=== PATIENT | female | born 1940 | race Caucasian/White ===

== ENCOUNTER 2016-10-20 14:09 | Emergency (ER) ==
--- NOTE | 2016-10-20 14:35 | EKG Report ---
Test Performed on : 10/20/2016 2:15:16 PM Test Reason : sob Blood Pressure : / mmHG Vent. Rate : 096 BPM Atrial Rate : 091 BPM P-R Int : 000 ms QRS Dur : 132 ms QT Int : 356 ms P-R-T Axes : 000 -39 151 degrees QTc Int : 449 ms Atrial fibrillation. with premature ventricular or aberrantly conducted complexes. Left axis deviation Left bundle branch block Abnormal ECG When compared with ECG of 27-AUG-2016 11:45, No significant change was found Unconfirmed Result
[2016-10-20] MEDS ORDERED: DUONEB (A & A) INH ONE ×2 (15:00→18:35)
--- NOTE | 2016-10-20 15:05 | PROVIDER DOCUMENTATION ---
HPI-Respiratory General - General Source: patient Unable to obtain history due to:: urgency - History of Present Illness-Resp Severity in ED: reports: moderate, severe Onset/Duration: reports: unsure Timing: reports: still present, constant Associated Symptoms: reports: shortness of breath, short of breath, wheezing. denies: cough, fever/chills, flu-like symptoms, nasal congestion, nasal drainage Similar Symptoms Previously?: Yes Recently seen or treated by another doctor?: Yes <Anand Gipson - Last Filed: 10/20/16 15:44> <Jana Dong - Last Filed: 10/20/16 18:36> <Mario Hyatt - Last Filed: 10/20/16 19:46> - General Chief Complaint: Wheezing Stated Complaint: DIFFCULTY BREATHING,WHEEZING Time Seen by Provider: 10/20/16 14:41 Allergies/Adverse Reactions: Patient Allergies Allergy/AdvReac Type Severity Reaction Status Date / Time No Known Allergies Allergy Verified 10/20/16 14:49 Home Medications: Home Medication List Medication Instructions Recorded Confirmed Last Taken Type Ezetimibe [Zetia] 10 mg PO DAILY 04/16/14 10/20/16 04/26/16 History Digoxin [Digox] 125 mcg PO DAILY #0 tablet 04/19/14 10/20/16 04/26/16 Rx Omeprazole [Prilosec] 20 mg PO DAILY@0700 #0 capsule 04/19/14 10/20/16 04/26/16 Rx PRAVAstatin [Pravachol] 40 mg PO QHS #0 tablet 04/19/14 10/20/16 04/26/16 Rx Tiotropium [place] Inhaler 1 puff INH RTDAILY #0 inhaler 04/19/14 10/20/1608/26 Rx [Spiriva] Metoprolol [Lopressor] 50 mg PO BID #60 tablet 05/07/15 10/20/16 04/26/16 Rx Hydrocodone/Acetaminophen [[place] 7.5 mg PO TID PRN PRN #90 tablet 09/18/1510/2004/28/16 Rx 7.5-325 Tablet] Prednisone 20 mg PO DAILY #5 tablet 08/29/16 10/20/16 Unknown Rx Folic Acid 1 mg PO DAILY 10/20/16 10/20/16 Unknown History Gabapentin 100 mg PO BID 10/20/16 10/20/16 Unknown History Losartan [Cozaar] 25 mg PO DAILY 10/20/16 10/20/16 Unknown History - History of Present Illness-Resp Nature of Presenting Problem: Patient is a 75 y/o F that presents to the ER via EMS for shortness of breath. patient is ESRD with hemodialysis but is unclear what days she goes( poor historian). Patient went to dialysis but was sent over for evaluation( she didn' t have dialysis). She is in moderate distress with wheezing and gasping for breath. patient has been admitted in past for septic shock and heart failure in past. (Anand Gipson) Review of Systems - Adult - REVIEW OF SYSTEMS - ADULT Constitutional: denies: chills, fever, fatique Eyes: reports: no symptoms reported Ears, Nose, Mouth & Throat: denies: ear discharge, ear pain, sinus problem, throat pain Cardiovascular: denies: chest pain, palpitations, syncope Respiratory: reports: dyspnea on exertion, shortness of breath, wheezing. denies: cough Gastrointestinal: denies: abdominal pain, diarrhea, nausea, vomiting Genitourinary: reports: no symptoms reported Musculoskeletal: reports: no symptoms reported Integumentary: reports: no symptoms reported Neurological: denies: dizziness/vertigo, headache/migraines, syncope Psychiatric: reports: no symptoms reported Endocrine: reports: no symptoms reported Hematologic/Lymphatic: reports: no symptoms reported Allergic/Immunologic: reports: no symptoms reported All Other Systems: Reviewed and Negative <Anand Gipson - Last Filed: 10/20/16 15:44> Past History - Adult - PAST MEDICAL HISTORY-ADULT Review of Records: reports: Old Records Reviewed, Nursing Assessment Review, Medications Reviewed Cardiovascular: reports: A-Fib, CHF, HTN Respiratory: reports: COPD Genitourinary: reports: dialysis (Wednesday, and wednesday), kidney disease, other (renal disease) Neurological: reports: CVA, other (cerebral bleeding) - PRIOR SURGERIES/PROCEDURES Surgical/Procedure History: reports: cholecystectomy, hysterectomy, other (left arm fistula, cerebral bleeding) - IMMUNIZATION STATUS Childhood Immunizations: UTD, See Nurse Assessment Flu Vaccine: See Nurse Assessment - FAMILY HISTORY Family History: reviewed, not pertinent - SOCIAL HISTORY Smoking: non-smoker Living Situation: family <Anand Gipson - Last Filed: 10/20/16 15:44> Physical Exam-General - PHYSICAL EXAM-ADULT Initial Vital Signs Reviewed: Yes - CONSTITUTIONAL General Appearance: moderate distress, anxious, other (ill appearing) - EYES Eyes: PERRL/EOMI, pink conjunctivae - HEAD, EARS, NOSE, MOUTH & THROAT HENMT: normocephalic/atraumatic, normal ENT inspection - NECK Neck: other (JVD left more than right) - RESPIRATORY Respiratory: respiratory distress, accessory muscle use, wheezing (throughout), increased rate - CARDIOVASCULAR Cardiovascular: JVD, other (unaudible heart tones due to wheezing) - GASTROINTESTINAL (ABDOMEN) Abdominal Exam: normal bowel sounds, non tender, soft - MUSCULOSKELETAL Extremity: no calf tenderness, swelling (bilateral lower legs) - SKIN Integumentary: other (stasis dermatitis to lower legs). negative: cyanosis - PSYCHIATRIC Psych/Mental Status: anxious, other (oriented to person, not place or time) <Anand Gipson - Last Filed: 10/20/16 15:44> Progress - XRAY 1 XRAY Study: Chest Impression: Abnormal XRAY Interpretation: prominent cardiac silhoutte and prominent right hilar <Anand Gipson - Last Filed: 10/20/16 15:44> - REASSESSMENT Reassessment #1 Time Reassessed: 18:30 (Dr. Miramontes reassessed pt to find her still heavily wheezing and lethargic. Requesting pt to be admitted. ) <Jana Dong - Last Filed: 10/20/16 18:36> - REASSESSMENT Reassessment #1 Time Reassessed: 19:45 (sitting up w/no distress and asking for food to eat now /pt agree w/dc home plan) Status: improving <Mario Hyatt - Last Filed: 10/20/16 19:46> - PLAN OF CARE/RESULTS Progress/Plan/Lab Results: plan of care-labs,meds, cxr (Anand Gipson) Departure <Anand Gipson - Last Filed: 10/20/16 15:44> <Jana Dong - Last Filed: 10/20/16 18:36> - Departure Time of Disposition Order: 19:44 Certified Medical Emergency: Emergent <Mario Hyatt M - Last Filed: 10/20/16 19:46> - Departure DIAGNOSIS: COPD exacerbation, End stage renal failure on dialysis, Weakness Disposition: HOME 01 Condition: Stable Additional Instructions: ED Follow Up Instructions: You have been treated by a care provider in the Emergency Department. These instructions are being provided to you so you can have an understanding of how to care for yourself upon discharge. Upon discharge from the Emergency Department, you are responsible for making arrangements for follow-up care by a physician of your choice. Take all prescribed medications as directed. Return to the Emergency Department immediately for any new or worsening symptoms. You may call the Physician Referral phone number at [phone] to obtain a list of Physicians who are taking new patients. Attestation - Scribe Verification/Attestation Scribe:: Anand Gipson Acting as Scribe for:: Dylon Miramontes Scribe documention review:: This chart was documented by a scribe and accurately reflects the service the provider performed and the decisions made by the provider. <Anadn Gipson - Last Filed: 10/20/16 15:44> Physician Attestation - Physician Attestation I, the provider, attest to the following statement:: Dylon Miramontes Physician documentation Attestation:: This documentation recorded by the scribe accurately reflects the service I personally performed and the decisions made by me. <Anand Gipson - Last Filed: 10/20/16 15:44>
[2016-10-20 15:17] LABS: MANUAL DIFF NEEDED? NO
[2016-10-20 15:20] LABS: BASO% 1.1 % (0.0-0.8); EOS# 0.05 X1000 (0.0-0.7); EOS% 1.1 % (0.0-10.0); HEMATOCRIT 36.6 % (37.0-47.0); HEMOGLOBIN 12.1 g/dL (12.0-16.0); LYMPH# 0.76 X1000 (1.2-3.4); LYMPH% 16.7 % (20.5-51.1); MCHC 33.1 g/dL (33-37); MCV 96.8 FL (81-99); MONO# 0.44 X1000 (0.11-0.59); MONO% 9.7 % (1.7-9.3); MPV 11.5 FL (7.4-10.4); NEUT% 71.4 % (42.2-75.2); PLT 193 X1000 (130-400); RBC 3.78 XMIL (4.2-5.4)
[2016-10-20 15:31] LABS: CALCIUM 8.9 mg/dL (8.8-10.2)
--- NOTE | 2016-10-20 15:40 | Diag Imaging Result Document ---
PROCEDURE NAME: CHEST-PORTABLE - 10/20/2016 SINGLE FRONTAL RADIOGRAPH OF THE CHEST: COMPARISON: 08/28/2016. FINDINGS: Inspiration is suboptimal. The patient is rotated toward the left. The lungs appear to be grossly clear. The right hilum is prominent but stable. No definite pleural fluid collection is identified. Cardiac silhouette is, perhaps, mildly prominent but stable. IMPRESSION: Mildly prominent cardiac silhouette and prominent right hilum that are stable. No definite acute pathology, otherwise.
[2016-10-20 18:57] LABS: ALLEN TEST YES; BE 3.9 mmoll (-3.0-3.0); BLOOD TYPE ARTERIAL; DRAW SITE R BRACHIAL; METHB 1.7 % (0.0-1.5); O2(CT) 15.1 mL/dL (15.0-23.0); PCO2(98.6) 46 mmHg (35-45); PO2(98.6) 147 mmHg (60-100); SAMPLE BLOOD; SAO2 99.8 % (95.0-100.0); THB 10.9 g/dL (11.5-17.4); pH(98.6) 7.41 (7.35-7.45)
[2016-10-20 18:58] LABS: MODALITY CANNULA
[2016-10-20] MEDS ORDERED: KLOR-CON PO ONE (19:44)
[2016-10-20 20:22] VITALS: BP 111/65
== END 2016-10-20 20:26 | disposition home or self-care (01) ==
LOC: EDBD → EDUNIT# → ED 14:09
DX: J44.1 Chronic obstructive pulmonary disease with (acute) exacerbation (principal); I12.0 Hypertensive chronic kidney disease with stage 5 chronic kidney disease or end stage renal disease; N18.6 End stage renal disease; Z99.2 Dependence on renal dialysis; R53.1 Weakness; R06.02 Shortness of breath; R06.2 Wheezing; I48.91 Unspecified atrial fibrillation; Z79.899 Other long term (current) drug therapy; R06.09 Other forms of dyspnea; J44.9 Chronic obstructive pulmonary disease, unspecified; Z86.73 Personal history of transient ischemic attack (TIA), and cerebral infarction without residual deficits; R22.43 Localized swelling, mass and lump, lower limb, bilateral; I87.2 Venous insufficiency (chronic) (peripheral); Z79.52 Long term (current) use of systemic steroids; Z79.51 Long term (current) use of inhaled steroids
CPT/HCPCS: 71010; 80048; 82805; 82948; 85025; 87040; 93005; 94640

== ENCOUNTER 2018-08-28 23:28 | Inpatient (IN) ==
[2018-08-29] MEDS ORDERED: ZOFRAN IV PRN (01:27)
[2018-08-29] MEDS ORDERED: NS 500 ML IV ONE (01:28)
[2018-08-29] MEDS ORDERED: D50W SYRINGE IV ONE (01:28)
[2018-08-29] MEDS: DUONEB (A & A) INH SCH ×6 (03:32→23:43)
--- NOTE | 2018-08-29 03:56 | HISTORY AND PHYSICAL ---
PRIMARY CARE PHYSICIAN: Unknown. CHIEF COMPLAINT: Altered mental status and needs dialysis. HISTORY OF PRESENTING ILLNESS: This is a 77-year-old female with a history of end-stage renal disease, COPD, atrial fibrillation, and dementia who apparently was transferred from [facility] due to patient needing dialysis and also being obtunded. Apparently, the physician there stated that the patient had missed 2 sessions of dialysis this last week and they were not able to get her dialyzed. The patient was subsequently transferred to the medical floor here. She was obtunded and not really responsive. Apparently, she was found also to be hypoglycemic while she was there with a blood glucose in the 50s range. She was given D50 by EMS and her blood glucose had increased to 130. However, en route, when the patient got to the medical floor here, her blood glucose had dropped down to 80. Not much information could be obtained from the patient and most of the history is obtained from previous records. PAST MEDICAL HISTORY: Includes left heel osteomyelitis, bilateral decubitus, hemorrhagic CVA, end- stage renal disease, COPD, atrial fibrillation, dementia, severe aortic stenosis. PAST SURGICAL HISTORY: Cholecystectomy, hysterectomy, dialysis catheter. ALLERGIES: No known drug allergies. CURRENT MEDICATIONS: As listed in the medication reconciliation sheet. SOCIAL HISTORY: No history of smoking, alcohol, or illicit drug use. Basically bedbound. FAMILY HISTORY: No history of coronary artery disease. REVIEW OF SYSTEMS: Unable to obtain due to patient being obtunded. PHYSICAL EXAMINATION: GENERAL: The patient is obtunded. VITAL SIGNS: Temperature 99.2 degrees, pulse 103, respirations 16, blood pressure 96/60. HEENT: Atraumatic and normocephalic. NECK: No masses. CHEST: Rhonchi. CARDIOVASCULAR: Regular rate and rhythm. ABDOMEN: Soft. Positive bowel sounds. EXTREMITIES: Wrapped in gauze. : No bladder distention. NEUROLOGIC: She is responsive to tactile painful stimuli. SKIN: Warm. LABORATORIES AND STUDIES: Done at [facility], sodium 132, potassium 3.7, chloride 94, CO2 of 24, BUN is 34, creatinine is 4.4, glucose is 57. WBCs 7.6, hemoglobin 8.1, hematocrit 25.2, platelets 361,000. ASSESSMENT: This is a 77-year-old female with a history of end-stage renal disease, chronic obstructive pulmonary disease, atrial fibrillation, and dementia who was transferred from [facility] due to patient needing dialysis. The patient is markedly obtunded here. She will be admitted for further management. 1. Altered mental status. 2. Metabolic encephalopathy. 3. Hypoglycemia. 4. End-stage renal disease. 5. Chronic obstructive pulmonary disease. 6. Atrial fibrillation. 7. Chronic left heel decubitus. PLAN: 1. The patient is admitted to the medical floor with telemetry. 2. Continue with neurological checks. 3. We will give the patient an ampule of D50 and monitor blood glucose closely. 4. We will consult nephrology for dialysis. 5. We will restart home medicines. 6. We will consult wound care. 7. We will hold off for DVT prophylaxis due to previous history of hemorrhagic CVA. 8. The patient's condition is guarded. 9. We will continue to follow and reassess, make further recommendation based on the patient's clinical course. cc: Saul Onofre MD
[2018-08-29] MEDS ORDERED: HEPARIN IV PRN (06:42)
[2018-08-29] MEDS ORDERED: NS 2,000 ML MISC PRN (06:42)
[2018-08-29] MEDS ORDERED: TIGHT: 0.2 ML/HR FOR DIALYSIS MISC PRN (06:42)
--- NOTE | 2018-08-29 13:20 | PROGRESS NOTE ---
DATE: 08/29/2018 SUBJECTIVE: Patient resting in bed. She is difficult to arouse. OBJECTIVE: Vital Signs: Temperature 97.1 degrees, pulse 95, respirations 18, blood pressure 129/73, O2 saturation 100%. HEENT: Atraumatic, normocephalic. Cardiovascular: S1, S2. Respiratory system: Evidence of good air entry bilaterally. Abdomen: Soft, nontender. No masses felt. Extremities: No evidence of edema. Central nervous system: The patient is lethargic. Could not adequately assess central nervous system. LABORATORY DATA: Labs pending. ASSESSMENT AND PLAN: 1. Encephalopathy probably secondary to uremia. Will continue to follow up on the patient's mental status while she is on hemodialysis. 2. End-stage renal disease, on hemodialysis. Nephrology consulted. 3. Chronic obstructive pulmonary disease. Use nebulized bronchodilators as needed. 4. Atrial fibrillation. Continue amiodarone. Patient's heart rate is currently controlled. 5. Chronic left heel decubitus ulcer. Will consult wound care for wound dressings. 6. Deep vein thrombosis prophylaxis. Heparin. 7. Gastrointestinal prophylaxis. Proton pump inhibitor. cc: Fam Enriquez MD
--- NOTE | 2018-08-29 13:30 | NEPHROLOGY CONSULTATION ---
DATE: 08/29/2018 REASON FOR ADMISSION: Altered mental status. HISTORY OF PRESENT ILLNESS: Ms. Beltran is a 77-year-old white female who is known to our outpatient services for hemodialysis on Wednesday, , Wednesday. It is noted that she has not been attending her dialysis treatment on an outpatient basis while residing at [facility] in [place]. She has been obtunded in the last 24 hours prior to her admission. Physician there stated that she had missed 2 sessions last week. The patient was subsequently transferred to the medical floor. She was hypoglycemic. Her glucose were in the 50s. She was given D50 by EMS. En route, her blood sugars dropped again. She was also given more D50. At this time she currently resides on the medical floor. She is awake to person and to place. She states that she does not want to stop any forms of dialysis. She states that she is very weak and has not been feeling well. PAST MEDICAL HISTORY: End-stage renal disease with hemodialysis on Wednesday, Wednesday, Wednesday at the [place] [facility] with two missed treatments last week. Left heel osteomyelitis, bilateral decubitus, hemorrhagic CVA, anemia of chronic disease, COPD, atrial fibrillation , dementia, severe aortic stenosis. PAST SURGICAL HISTORY: Cholecystectomy, hysterectomy, tunneled dialysis catheter to the right chest. SOCIAL HISTORY: She is bed-bound. She is cared for by her son and daughter-in- law. She is currently a resident of [facility]. No tobacco, alcohol or illicit drug use. FAMILY HISTORY: No history of coronary artery disease or renal disease. ALLERGIES: Listed as no known drug allergies. HOME MEDICATIONS: Have yet to be reconciled. REVIEW OF SYSTEMS: Review of systems x10 with pertinent positives listed above in the history of present illness. The patient denies any nausea, vomiting, no diarrhea. No fever or chills. No chest pain. No increased work of breathing. No recent falls that she is aware of. PHYSICAL EXAMINATION: Vital Signs: Temperature 97.6 degrees, blood pressure 113/71, heart rate 96, respirations 16. She is on 2 L nasal cannula. Last recorded saturation 100 %. General: This is a 77-year-old elderly female. She appears very weak. She is in no acute distress. Skin: Warm and dry. HEENT: Normocephalic, atraumatic. Conjunctiva is pale pink. She has GINA. Mucous membranes dry. Neck: Supple. Trachea midline. No JVD. Cardiovascular : Irregular rate and rhythm. S4 is noted. Lungs: Clear to auscultation bilaterally. Equal excursion on O2. Abdomen: Soft, nontender, positive bowel sounds. Genitourinary: Not inspected. Minimal void with dialysis assist. Extremities: 2+ edema. Neurological: As mentioned above. INPUT AND OUTPUT: She has had 500 in, she has had 0 recorded out with need for dialysis. LABORATORY: The patient has not had any labs drawn since her admission. Chemistry again showing glucose of 127. ASSESSMENT AND PLAN: 1. Chronic kidney disease stage 5D. The patient is in need of dialysis today. She has missed her last [address] her on a 2K bath. She is to dialyze for 3.5 hours. We will attempt to pull her to her outpatient dry weight. 2. Electrolytes and acid-base balance. These have not been repeated. 3. Anemia. This has not been repeated. We will order these today. 4. Altered mental status. Patient is more awake and alert after blood sugar control. 5. Noncompliance. The patient is actually a resident of [facility]. She has not been taken to her dialysis treatments 2 times in the last week. She is very weak. She states that she does want to continue dialysis at this time. I would like to thank you for allowing us to follow with this patient. Dictated by SCARLETT Bass for Basilio Nava MD Face to face encounter, data reviewed, discussed with Sussy Woodall on 08/29/18. I agree with the above assessment and plan of care. cc: SCARLETT Bass MD [facility]
[2018-08-29 13:58] LABS: ALB/GLOB RATIO 1.2; CALCIUM 10.6 mg/dL (8.8-10.2); CREATININE 4.2 mg/dL (0.5-0.9); TOTAL BILIRUBIN 0.3 mg/dL (0.20-1.00); TOTAL PROTEIN 5.6 g/dL (6.3-8.3)
[2018-08-29] MEDS: PHOSLO PO SCH ×3 (18:20→23:18)
[2018-08-29] MEDS: HEPARIN SUBQ SCH ×2 (23:01→23:19)
[2018-08-29] MEDS: PRAVACHOL PO SCH ×2 (23:02→23:20)
[2018-08-29] MEDS: NEURONTIN PO SCH ×2 (23:05→23:20)
[2018-08-30] MEDS: DUONEB (A & A) INH SCH ×4 (04:08→15:16)
[2018-08-30] MEDS: SANTYL OINT TOP SCH ×2 (04:22→16:10)
[2018-08-30] MEDS: PROTONIX PO SCH (06:57)
[2018-08-30] MEDS ORDERED: NS 2,000 ML MISC PRN (07:41)
[2018-08-30] MEDS ORDERED: HEPARIN IV PRN (07:41)
[2018-08-30] MEDS ORDERED: TIGHT: 0.2 ML/HR FOR DIALYSIS MISC PRN (07:41)
[2018-08-30 08:14] LABS: BASO# 0.09 X1000 (0.0-0.2); BASO% 1.1 % (0.0-0.8); EOS# 0.23 X1000 (0.0-0.7); EOS% 2.8 % (0.0-10.0); HEMATOCRIT 27.6 % (37.0-47.0); HEMOGLOBIN 8.5 g/dL (12.0-16.0); IMM GRAN# 0.04 X1000 (0.0-0.04); IMM GRAN% 0.5 % (0.0-0.5); LYMPH# 0.65 X1000 (1.2-3.4); LYMPH% 7.9 % (20.5-51.1); MCH 32.2 PG (27-31); MCHC 30.8 g/dL (33-37); MCV 104.5 FL (81-99); MONO# 0.72 X1000 (0.11-0.59); MONO% 8.7 % (1.7-9.3); MPV 10.5 FL (7.4-10.4); NEUT# 6.53 X1000 (1.4-6.5); PLT 376 X1000 (130-400); RBC 2.64 XMIL (4.2-5.4); RDW 18.7 % (11.5-14.5); WBC 8.26 X1000 (4.8-10.8)
[2018-08-30 08:33] LABS: ALBUMIN 2.6 g/dL (3.5-5.0); CALCIUM 8.7 mg/dL (8.8-10.2); PHOSPHORUS 1.3 mg/dL (2.7-4.5)
[2018-08-30] MEDS: CORDARONE PO SCH (09:00)
[2018-08-30] MEDS: PHOSLO PO SCH ×3 (09:00→21:45)
[2018-08-30] MEDS: ZETIA PO SCH (09:00)
[2018-08-30] MEDS: PROAMATINE PO SCH (09:00)
[2018-08-30] MEDS: HEPARIN SUBQ SCH ×2 (09:00→21:45)
--- NOTE | 2018-08-30 17:22 | Diag Imaging Result Doc PS360 ---
EXAM: CT HEAD W/O CONTRAST 08/30/2018 HISTORY: encephalopathy TECHNIQUE: This exam was performed using automated exposure control, adjustment of mA or kV according to patient size, and/or use of iterative reconstruction technique. COMMENT: There is calcification throughout the vertebral and internal carotid arteries. There are calcifications in the basilar artery. There is extensive abnormal lucency throughout the white matter of both hemispheres with lacunae present in the basal ganglia and external capsule regions. There is no evidence of bleed or abnormal extra-axial fluid collection. Compared to the previous study of 07/09/2018 there has been no significant change in the appearance of the brain. There is a mucous retention cyst in the left maxillary sinus. There is no evidence of acute bony abnormality. IMPRESSION: Extensive chronic ischemic changes. No evidence of acute disease. Electronically signed by Sincere Bah 08/30/2018 5:20 PM
--- NOTE | 2018-08-30 17:49 | PROGRESS NOTE ---
DATE: 08/30/2018 SUBJECTIVE: Patient has no focal complaints. She is sitting up in bed. She is more awake, alert. Still seems a little confused. OBJECTIVE: Blood pressure 97/34, heart rate of 109, respiratory rate of 14, temperature 97.4 degrees.Cardiovascular: She has a heaving S1, S2. Pulmonary: Rales at the bases. GI: Was soft, nontender, nondistended. Bowel sounds are positive. Extremities: No clubbing or cyanosis. Lymphatic: No peripheral edema. Neurological: Nonfocal. LABORATORY DATA: Her white count was 8, hemoglobin and hematocrit 8 and 27, platelets 376,000, potassium of 3. PROBLEM LIST: 1. Encephalopathy which is overall improved. 2. Volume overload state. She had missed a couple dialysis appointments and her mental status and her volume status have improved status post dialysis. 3. End-stage renal. She is on hemodialysis per Dr. Nava manage accordingly. 4. Chronic obstructive pulmonary disease. Continue breathing treatments and follow. 5. Atrial fibrillation appears to be rate controlled. She is on amiodarone. She is not on any significant blood thinners. DISPOSITION: Pending her clinical status probably repeat her chest x-ray tomorrow after dialysis and if she is improved hopefully get her home. cc: Alan Blackwell MD
--- NOTE | 2018-08-30 19:35 | NEPHROLOGY PROGRESS NOTE ---
DATE: 08/30/2018 TIME SEEN: 0853 SUBJECTIVE: Ms. Beltran is resting quietly in bed. Her head of the bed is elevated. She has no complaints. She awakens to verbal stimuli. VITAL SIGNS: Temperature 97.5 degrees, blood pressure 116/58, heart rate 62, respirations are 14. LABORATORY DATA: Sodium is 139, potassium is 3, chloride 100, CO2 27, her BUN is 14 with a creatinine of 2, glucose of 62. The patient has an anion gap of 12, her calcium is 8.7, phosphorus is 1.3, albumin is 2.6. The patient has a white count of 8.26, previous hemoglobin 8.5, hematocrit of 27.6, platelet count 376,000. PHYSICAL EXAM: This is a 77-year-old white female resting quietly in bed. Her head of the bed is elevated. She appears chronically ill and no acute distress is present. Her skin is warm and dry.HEENT: Normocephalic, atraumatic. Conjunctiva is pale pink. She has GINA. Mucous membranes are dry. Neck: Supple. Trachea midline. No evidence of JVD. Cardiovascular : She is regular rate and rhythm. She has an S4. Lungs: Clear to auscultation with poor inspiratory effort, remains on O2. Abdomen: Soft, large, obese, nontender, positive bowel sounds. Genitourinary: Not inspected, minimal void with dialysis assist. Extremities: She does continue with 2+ lower extremity edema. ASSESSMENT AND PLAN: 1. Chronic kidney disease stage 5D. The patient had missed multiple treatments of dialysis, secondary to these missed treatments patient has ongoing encephalopathy. We will plan for dialysis again today. Will place her on a 3 K bath she is to dialyze for 3-1/2 hours. We will attempt to pull patient to her outpatient dry weight. 2. Electrolytes and acid-base balance. Patient has low potassium to be corrected on dialysis. 3. Anemia this remains low but stable. 4. Altered mental status. Patient does awaken easily. 5. Noncompliance with dialysis treatments. Airline Dispatcher to get involved in regards with discussing with [facility]. Like to thank you for allowing us to follow with this patient. Dictated by SCARLETT Bass for Basilio Nava MD Face to face encounter, data reviewed, discussed with Yolie Woodall on 08/30/18. I agree with the above assessment and plan of care. cc: SCARLETT Bass MD [facility]
[2018-08-30] MEDS: XOPENEX NEB INH SCH (21:28)
[2018-08-30] MEDS: PRAVACHOL PO SCH (21:45)
[2018-08-30] MEDS: NEURONTIN PO SCH (21:45)
[2018-08-31] MEDS: XOPENEX NEB INH SCH ×4 (04:00→21:50)
[2018-08-31] MEDS ORDERED: D50W SYRINGE IV ONE (06:29)
[2018-08-31] MEDS ORDERED: D50W SYRINGE ONE (06:40)
[2018-08-31] MEDS: PROTONIX PO SCH (06:48)
[2018-08-31 07:50] LABS: BASO# 0.12 X1000 (0.0-0.2); EOS# 0.25 X1000 (0.0-0.7); EOS% 4.1 % (0.0-10.0); HEMATOCRIT 27.3 % (37.0-47.0); HEMOGLOBIN 8.2 g/dL (12.0-16.0); IMM GRAN# 0.04 X1000 (0.0-0.04); IMM GRAN% 0.7 % (0.0-0.5); LYMPH# 0.83 X1000 (1.2-3.4); LYMPH% 13.5 % (20.5-51.1); MCH 32.2 PG (27-31); MCV 107.1 FL (81-99); MONO# 0.59 X1000 (0.11-0.59); MONO% 9.6 % (1.7-9.3); MPV 10.3 FL (7.4-10.4); NEUT% 70.1 % (42.2-75.2); PLT 345 X1000 (130-400); RBC 2.55 XMIL (4.2-5.4); RDW 19.3 % (11.5-14.5); WBC 6.13 X1000 (4.8-10.8)
[2018-08-31 08:12] LABS: ALBUMIN 2.4 g/dL (3.5-5.0); CREATININE 1.4 mg/dL (0.5-0.9); POTASSIUM 3.1 mmol/L (3.5-5.1)
[2018-08-31] MEDS ORDERED: PROAMATINE PO ONE (08:16)
[2018-08-31] MEDS ORDERED: TIGHT: 0.2 ML/HR FOR DIALYSIS MISC PRN (08:17)
[2018-08-31] MEDS ORDERED: NS 2,000 ML MISC PRN (08:17)
[2018-08-31] MEDS ORDERED: HEPARIN IV PRN (08:17)
[2018-08-31 09:01] LABS: BANDS 2 % (0-1); EOS 2 % (1-10); LYMPHS 10 % (21-51); MONO 10 % (1-9); SEGS 74 % (42-75)
[2018-08-31 09:02] LABS: ANISOCYTOSIS 1+; HYPOCHROM 1+
[2018-08-31] MEDS: ULTRAM PO PRN ×2 (09:26→15:15)
[2018-08-31] MEDS: ZETIA PO SCH (09:27)
[2018-08-31] MEDS: HEPARIN SUBQ SCH (09:27)
[2018-08-31] MEDS: MIRALAX PO SCH (09:28)
--- NOTE | 2018-08-31 09:35 | NEPHROLOGY PROGRESS NOTE ---
DATE: 08/31/2018 DATE AND TIME OF EXAM: 08/31/2018 at 0815 hours. SUBJECTIVE: Ms. Beltran is sitting up in bed. She has just been repositioned by her nurse. She is a little bit more awake, has no complaints. OBJECTIVE: Vital Signs: Temperature 97.4 degrees, blood pressure 99/42, heart rate 111, respirations are 20. She is on 2 L nasal cannula. Last recorded saturation 100 %. She has had 0 recorded in and she has had 1849 out, only 200 mL on dialysis. LABS: Sodium is 139, potassium 3.1, chloride 100, CO2 28, BUN 7, creatinine 1.4 , glucose 86. Anion gap 11, calcium 8, phosphorus 1, albumin 2.4. White count 6.13, hemoglobin 8.2, hematocrit 27.3, with a platelet count of 345. PHYSICAL EXAMINATION: General: This is a 77-year-old white female resting quietly in bed. Her head of the bed is elevated. She appears chronically ill. No acute distress. Skin: Warm and dry. HEENT: Normocephalic, atraumatic. Conjunctiva is pale pink. She has GINA. Mucous membranes are dry. Neck: Supple. Trachea midline. No evidence of JVD. Cardiovascular: She has regular rate and rhythm. S4 is present. She is without murmur or gallop. Lungs: Clear to auscultation bilaterally, equal excursion on O2. Poor inspiratory effort. Abdomen: Large, soft, obese, nontender. Positive bowel sounds. Genitourinary: Not inspected. Minimal void with dialysis assist. Extremities: Continues with 1+ to 2+ edema, although she has pitting 3+ up into her mid hip and upper thigh area. Neurological: Alert to person. ASSESSMENT AND PLAN: 1. Chronic kidney disease stage 5 D. The patient has had dialysis for 2 days in a row. This has had to be terminated secondary to a drop in her blood pressure. She does have midodrine ordered. We will go ahead and plan for dialysis today secondary to having crackles to her bilateral lower lobes posterior and positive 2+ to 3+ edema to the hip and abdominal region. We will order an extra dose of midodrine to be given today prior to dialysis [address] her on a 3 potassium bath; she is to dialyze for 3 hours. Again, we will attempt to challenge her dry weight. 2. Electrolytes and acid-base balance. The patient has hypokalemia again with correction on dialysis with a 3 potassium bath. Her phosphorus level is low at 1. We will stop her calcium acetate at this time and re-evaluate labs in the next several days. 3. Anemia. This remains stable. 4. Acidosis. This is stable with correction on dialysis. 5. Altered mental status. Patient is more awake. I would like to thank you for allowing us to follow with this patient. Dictated by SCARLETT Bass for Basilio Nava MD Face to face encounter, data reviewed, discussed with Sussy Woodall on 08/31/18. I agree with the above assessment and plan of care. cc: SCARLETT Bass MD [facility]
[2018-08-31] MEDS: SPIRIVA INH SCH (09:56)
[2018-08-31] MEDS: CORDARONE PO SCH (14:05)
[2018-08-31] MEDS: SANTYL OINT TOP SCH (15:15)
[2018-08-31] MEDS ORDERED: FLEET ENEMA PR ONE (16:58)
--- NOTE | 2018-08-31 18:01 | PROGRESS NOTE ---
DATE: 08/31/2018 INTERVAL HISTORY: The patient had dialysis yesterday but it was cut short because of hypotension. Attempting dialysis again today. Mental status seems largely stable. No acute events overnight. No new complaints. REVIEW OF SYSTEMS: Twelve point review of systems negative except as per interval history. LABORATORY: WBC 6.1, hemoglobin 8.2, hematocrit 27.3, and platelets 345,000. Sodium 139, potassium 3.1, BUN 7, creatinine 1.4, glucose 64, calcium 8, phosphorus 1, albumin 2.4. VITAL SIGNS: T-max 98.2 degrees, pulse 89, respirations 18, blood pressure 93/ 56, O2 saturation 100% on 2 L by nasal cannula. PHYSICAL EXAMINATION: General: No acute distress. Vitals: As above. HEENT: Normocephalic, atraumatic. Moist mucous membranes. No cervical adenopathy. Cardiovascular: Regular rate and rhythm. No murmurs, rubs, or gallops. Pulmonary: Slight bibasilar crackles. Otherwise clear to auscultation bilaterally. Abdomen: Soft, nontender, and nondistended. Bowel sounds positive. Extremities: Peripheral pulses intact. Trace bilateral lower extremity edema. No clubbing or cyanosis. Neurologic: Cranial nerves grossly intact. Mild global weakness, but no focal deficits identified. Psychiatric: Asleep, but arousable. Cooperative and conversant, but is at least mildly confused. Oriented to person and place, but not time. Skin: No new rashes or lesions noted. ASSESSMENT AND PLAN: 1. Metabolic encephalopathy, likely related to patient missing dialysis. Appears to be improving with dialysis. Remains mildly confused, but may have some underlying dementia with some baseline mild confusion. Continue to monitor. 2. End-stage renal disease and volume overload. The patient still with some slight basilar crackles, but otherwise improved. Oxygenation reasonable. Continue to monitor. 3. Chronic obstructive pulmonary disease. No wheezing currently. Continue to monitor and continue breathing treatments as needed. 4. Atrial fibrillation largely normal sinus rhythm here. Continue to monitor. Continue amiodarone. 5. Deep vein thrombosis prophylaxis. Heparin. 6. Disposition: Anticipate discharge once nephrology is satisfied by her ability to dialyze her and get some fluid off. [facility]
[2018-09-01] MEDS: NEURONTIN PO SCH (00:07)
[2018-09-01] MEDS: PRAVACHOL PO SCH (00:07)
[2018-09-01] MEDS: HEPARIN SUBQ SCH ×2 (00:07→09:51)
[2018-09-01] MEDS: XOPENEX NEB INH SCH ×4 (04:12→21:00)
[2018-09-01] MEDS: PROTONIX PO SCH (07:06)
[2018-09-01 07:40] LABS: ALBUMIN 2.4 g/dL (3.5-5.0); CALCIUM 7.3 mg/dL (8.8-10.2); CREATININE 1.5 mg/dL (0.5-0.9); PHOSPHORUS 1.5 mg/dL (2.7-4.5); POTASSIUM 2.8 mmol/L (3.5-5.1)
[2018-09-01] MEDS: CORDARONE PO SCH (09:51)
[2018-09-01] MEDS: ZETIA PO SCH (09:51)
[2018-09-01] MEDS: PROAMATINE PO SCH (09:51)
[2018-09-01] MEDS: MIRALAX PO SCH (09:51)
[2018-09-01] MEDS: SANTYL OINT TOP SCH (09:52)
[2018-09-01] MEDS: SPIRIVA INH SCH (10:43)
[2018-09-01] MEDS ORDERED: KLOR-CON PO ONE (14:34)
--- NOTE | 2018-09-01 15:14 | NEPHROLOGY PROGRESS NOTE ---
DATE: 09/01/2018 TIME SEEN: 0823. SUBJECTIVE: Ms. Beltran is sitting up in bed, resting quietly. She is more awake and alert today. She denies any discomfort. OBJECTIVE: Vital Signs: Temperature 98.9 degrees, blood pressure 110/68, heart rate 100 respirations 18. She is on 2 L nasal cannula. Last recorded saturation 100% Intake and output: She has had 440 in. She has had 1737 removed off her dialysis yesterday. General: This is a 77- year-old elderly female .she is resting quietly in bed. She is more awake and alert today. Skin: Warm and dry. HEENT: Normocephalic, atraumatic. Conjunctivae pale pink. GINA. Mucous membranes are dry. Neck: Supple. Trachea midline. No evidence of JVD. Cardiovascular: Regular rate and rhythm. She has a systolic murmur present. Lungs: Basically clear to auscultation. Poor inspiratory effort. She remains on O2. Abdomen: Large, round, soft, nontender. Positive bowel sounds. Genitourinary: Not inspected. Minimal void with dialysis assist. Extremities: Patient continues with 1 to 2+ lower extremity edema, basically around her hips and thighs, improved edema to her lower feet area bilaterally. Integumentary: Patient has bruising to her left chest. Her feet are currently wrapped with Kerlix. She does have some areas of blackened toes on her 3rd and 4th digits on the right. DIAGNOSTIC DATA: Sodium 143, potassium is 2.8, chloride 101, CO2 of 30, BUN 7, creatinine 1.5, glucose 65, her anion gap is 12, calcium 7.3, phosphorus 1.5, albumin is 2.4. Patient had a previous hemoglobin of 8.2 on admission. ASSESSMENT AND PLAN: 1. Chronic kidney disease, stage 5D. The patient is due for her routine dialysis treatment in the morning. She has dialyzed for 3 days straight. This has improved her encephalopathy. No indications for intervention today. 2. Electrolytes. Patient has hypokalemia. We will order a large dose of potassium for her today, and we will check her electrolytes tomorrow with plans for correction on dialysis tomorrow. 3. Anemia. This remains fairly stable. 4. Encephalopathy with altered mental status. This has improved with dialysis. I would like to thank you for allowing us to follow with this patient. Dictated by SCARLETT Bass for Basilio Nava MD Face to face encounter, data reviewed, discussed with Sussy Woodall on 09/01/18. I agree with the above assessment and plan of care. cc: SCARLETT Bass MD [facility]
--- NOTE | 2018-09-01 16:37 | PROGRESS NOTE ---
DATE: 09/01/2018 OVERNIGHT: No acute events. She was tachycardic and hypotensive, however, saturating 100% on 2 to 3 L nasal cannula. SUBJECTIVE: The patient is sleepy. Input and output charting suggests she only eats a few bites of her meals. The patient is able to tell me her name, her son's name; however , she did not appear oriented to place or she could not tell me if I was her doctor. OBJECTIVE: Vitals: Suggest temperature of 97.7 degrees, pulse 105 per minute, blood pressure 97/50, saturating 100% on 2 to 3 L nasal cannula. General: She does not appear in any acute distress, is drowsy, follows simple commands like opening mouth. Lungs: Air entry bilaterally equal. Mild crackles bilateral bases. No wheeze or rhonchi. Cardiovascular: S1, S2 normal. No murmur, rub, or gallop. Abdomen: Soft, nontender. Extremities: Lower extremity mild bilateral edema. Neurologic: Drowsy, but arousable. Oriented to herself and could tell me her son's name, but her speech appears incoherent, and she cannot raise up her voice. DIAGNOSTIC DATA: Lab evaluation suggests hypokalemia, hypophosphatemia, hypoglycemia. ASSESSMENT AND PLAN: 1. Acute metabolic encephalopathy, likely related to missed hemodialysis. Appears to be improving. Her current mental status appears to be close to her baseline. She also appears to have some baseline dementia with mild confusion. Continue to monitor. 2. End-stage renal disease and volume overload. Nephrology on board. We will appreciate recommendation about further need of hemodialysis keeping patient inpatient. 3. Chronic obstructive pulmonary disease (COPD), currently stable. Continue to monitor and breathing treatment as needed. 4. Atrial fibrillation, appears to be paroxysmal. Continue home amiodarone. 5. Continue tiotropium, for her history of chronic obstructive pulmonary disease (COPD), and albuterol. 6. Chronic pain. Continue gabapentin and decrease the dose of tramadol. 7. Hyperlipidemia. Continue home pravastatin. 8. Hypotension, likely because of debility and poor p.o. intake. Hemodialysis might also be contributing to it. Continue home midodrine. DISPOSITION: I will appreciate Nephrology recommendation about need for further hemodialysis, but to me, patient appears to have improved in terms of her volume, and I would consider discharging her later this week. cc: Keyon Roberts MD [facility]
[2018-09-02] MEDS: PRAVACHOL PO SCH ×2 (00:15→22:52)
[2018-09-02] MEDS: NEURONTIN PO SCH ×2 (00:15→22:52)
[2018-09-02] MEDS: HEPARIN SUBQ SCH ×3 (00:15→22:51)
[2018-09-02] MEDS: XOPENEX NEB INH SCH ×4 (03:48→21:04)
[2018-09-02] MEDS: PROTONIX PO SCH (06:36)
[2018-09-02] MEDS ORDERED: HEPARIN IV PRN (07:21)
[2018-09-02] MEDS ORDERED: TIGHT: 0.2 ML/HR FOR DIALYSIS MISC PRN (07:21)
[2018-09-02] MEDS ORDERED: NS 2,000 ML MISC PRN (07:21)
[2018-09-02 08:19] LABS: ALBUMIN 2.5 g/dL (3.5-5.0); CALCIUM 7.4 mg/dL (8.8-10.2); CREATININE 1.9 mg/dL (0.5-0.9); POTASSIUM 3.8 mmol/L (3.5-5.1)
[2018-09-02] MEDS: SPIRIVA INH SCH (09:56)
--- NOTE | 2018-09-02 11:32 | NEPHROLOGY PROGRESS NOTE ---
DATE: 09/02/2018 SUBJECTIVE: Patient is sitting in bed asleep. She does not rouse significantly. She drifts off back to sleep easily. OBJECTIVE: Vital Signs: Temperature 97.5, pulse 103 respiratory rate 17, blood pressure 72/40. Intake 720 mL. Output not measured. General: Elderly, chronically ill- appearing female, resting in bed. No acute distress. HEENT: Normocephalic, atraumatic. Oral mucosa moist. Neck: Supple. No JVD. Cardiovascular: Regular rate and rhythm with a murmur. Pulmonary: She is clear to auscultation bilaterally. She has decreased breath sounds. Abdomen: Soft, with positive bowel sounds. : Not inspected. Extremities: She has wraps lower extremities. Integumentary: Skin is warm and dry. Multiple areas of ecchymoses noted. She has some darker areas to the fingers and toes on her right. LAB DATA: Sodium 140, potassium 3.8. CO2 of 30, creatinine 1.9, phosphorus 2, albumin 2.5. ASSESSMENT AND PLAN: 1. Chronic kidney disease 5D. Today is her routine dialysis day. We will try to dialyze her on a 3K bath/Ultrafiltration to dry weight 4 hour treatment. 2. Acute metabolic encephalopathy. She has made some improvement with dialysis. Again, we will dialyze today. She is quite somnolent today. Her vital signs are stable and clinically so. 3. Electrolytes, acid-base balance. She continues with some hypokalemia. Dictated by SCARLETT Juarez for Basilio Nava MD Data reviewed, discussed with Marty La on 09/02/28. I agree with the above assessment and plan of care. cc: Basilio [facility]ava [facility]
[2018-09-02] MEDS: MIRALAX PO SCH (11:53)
[2018-09-02] MEDS: SANTYL OINT TOP SCH (11:54)
[2018-09-02] MEDS ORDERED: PROAMATINE PO ONE (14:05)
[2018-09-02] MEDS: ZETIA PO SCH (17:44)
[2018-09-02] MEDS: CORDARONE PO SCH (17:44)
[2018-09-02] MEDS: ULTRAM PO PRN (22:53)
--- NOTE | 2018-09-02 22:58 | PROGRESS NOTE ---
DATE: 09/02/2018 SUBJECTIVE: Overnight, no acute events. OBJECTIVE: General: The patient is sitting in the bed, appears more awake and alert today than she was yesterday. Does not appear in acute distress. Vital signs: Unremarkable. General: She does not appear in any acute distress Lungs: Air entry bilaterally equal. Mild crackles bilateral bases. No wheeze or rhonchi. Cardiovascular: S1, S2 normal. No murmur, rub, or gallop. Abdomen: Soft, nontender. Extremities: Lower extremity mild bilateral edema. Neurologic: Drowsy, but arousable. Oriented to herself and could tell me her son's name, but her speech appears incoherent, and she cannot raise up her voice. DIAGNOSTIC DATA: In acceptable range. ASSESSMENT AND PLAN: 1. Acute metabolic encephalopathy, likely related to missed hemodialysis. Appears to be improving. Her current mental status appears to be close to her baseline. She also appears to have some baseline dementia with mild confusion. Continue to monitor. 2. End-stage renal disease and volume overload. Nephrology on board. We will appreciate recommendation about further need of hemodialysis keeping patient inpatient. 3. Chronic obstructive pulmonary disease (COPD), currently stable. Continue to monitor and breathing treatment as needed. 4. Atrial fibrillation, appears to be paroxysmal. Continue home amiodarone. 5. Continue tiotropium, for her history of chronic obstructive pulmonary disease (COPD), and albuterol. 6. Chronic pain. Continue gabapentin and decreased the dose of tramadol. 7. Hyperlipidemia. Continue home pravastatin. 8. Hypotension, likely because of debility and poor p.o. intake. Hemodialysis might also be contributing to it. Continue home midodrine. DISPOSITION: I will appreciate Nephrology recommendation about need for further hemodialysis, but to me, patient appears to have improved in terms of her volume, and I would consider discharging her later this week. cc: Keyon Roberts MD [facility]
[2018-09-03] MEDS: XOPENEX NEB INH SCH ×4 (03:42→21:04)
[2018-09-03] MEDS: NS NEB INH SCH ×2 (03:42→09:13)
[2018-09-03] MEDS: PROTONIX PO SCH (07:09)
[2018-09-03 07:59] LABS: ALBUMIN 2.1 g/dL (3.5-5.0); CALCIUM 7.4 mg/dL (8.8-10.2); CREATININE 1.2 mg/dL (0.5-0.9); PHOSPHORUS 1.5 mg/dL (2.7-4.5); POTASSIUM 3.8 mmol/L (3.5-5.1)
[2018-09-03] MEDS: PROAMATINE PO SCH ×3 (08:41→22:05)
[2018-09-03] MEDS: SPIRIVA INH SCH (09:13)
[2018-09-03] MEDS: MIRALAX PO SCH (11:01)
[2018-09-03] MEDS: HEPARIN SUBQ SCH ×2 (11:01→22:03)
[2018-09-03] MEDS: CORDARONE PO SCH (11:02)
[2018-09-03] MEDS: ZETIA PO SCH (11:02)
[2018-09-03] MEDS: SANTYL OINT TOP SCH (11:02)
--- NOTE | 2018-09-03 13:42 | NEPHROLOGY PROGRESS NOTE ---
DATE: 09/03/2018 SUBJECTIVE: The patient is sitting up in bed. She is awake. She states that she has not eaten breakfast and needs some help. OBJECTIVE: Vital Signs: Temperature 97.8, pulse 109, respiratory rate 16, blood pressure 120/30. PHYSICAL EXAMINATION: General: Elderly female resting in bed. She is awake and alert this morning. She does not appear in distress. HEENT: Normocephalic, atraumatic. Neck is supple without JVD. Cardiovascular: Regular rate and rhythm with no murmur. Pulmonary: She is clear bilaterally. Abdomen soft, positive bowel sounds. : She has a wrap to the left lower extremity. It is tender to touch. No edema noted. Integumentary: Skin is warm and dry with ecchymoses and breakdown noted. LABORATORY DATA: None. Her potassium yesterday was 3.8 prior to dialysis and creatinine was 1.9. ASSESSMENT AND PLAN: 1. Chronic kidney disease, 5 D. She underwent dialysis per routine yesterday. We will keep her on a Wednesday, Wednesday, Wednesday schedule as she was dialyzing in the [place] [facility] from the rehab center. 2. Metabolic encephalopathy. She has had some improvement after dialysis and with improvement of her blood pressure. 3. Hypotension. She was receiving midodrine Wednesday, , Wednesday. I ordered a dose yesterday after dialysis. We went ahead and changed her over to midodrine 3 times a day daily as it appears that her hypotension is exacerbating her encephalopathy. Dictated by SCARLETT Juarez for Basilio Nava MD cc: Basilio Nava MD [facility]
--- NOTE | 2018-09-03 14:16 | PROGRESS NOTE ---
DATE: 09/03/2018 OVERNIGHT/SUBJECTIVE: No acute events. I was informed today in the morning that patient's blood pressure was a little low, and she was not saturating well. I evaluated the patient, however patient was awake and arousable and alert. She followed simple commands. She did not appear in any acute distress. I increased the oxygen and her saturation increased to 100%. I also gave her a dose of midodrine following which her blood pressure has become in acceptable range. The patient denies any new complaints. OBJECTIVE: Vitals: Currently temperature of 98 degrees, pulse 96, blood pressure 130/42, saturating 94% on 3 L nasal cannula. General: The patient is cachectic and does not appear in any acute distress. Lungs: Air entry bilaterally equal. Mild bilateral basilar crackles. No wheeze or rhonchi. Heart: S1, S2 normal. No rub or gallop. She has systolic murmur affecting mitral and aortic region. Abdomen: Soft, nontender. Extremities: Only mild lower extremity edema. Neurologic: She is alert, appears irritable, follows simple commands; however, does not engage in any meaningful conversation. She often times states that she does not want to perform a particular maneuver as she does not want to do that. LABS: Electrolytes suggestive of elevated BUN, creatinine, which has improved since admission, low phosphate which is 1.5 today. ASSESSMENT AND PLAN: 1. Acute metabolic encephalopathy likely related to missed hemodialysis. Appears to be improving. Her current mental status appears to be close to her baseline. She also appears to have some baseline dementia with mild confusion. Continue to monitor. 2. End-stage renal disease and volume overload. Nephrology on board. She has received multiple hemodialysis and now appears to be appropriately hemodialyzed. 3. Hypotension. The patient has had multiple hypotensive episodes given previous admission. This is likely related to poor oral intake. Continue to use midodrine as required. 4. History of chronic obstructive pulmonary disease, currently stable. Continue oxygenation to maintain saturation more than 92%. Continue breathing treatment as needed. 5. Atrial fibrillation, paroxysmal. Continue home amiodarone. 6. Continue tiotropium for chronic obstructive pulmonary disease and albuterol. 7. Chronic pain. Continue gabapentin and decrease dose of tramadol. 8. Hyperlipidemia. Continue pravastatin. 9. Disposition: I talked with the patient's [id number] and informed her about patient's condition. The [id number] had explained that she would not like her to go to rehabilitation considering she does not receive proper care, and she would like to take her home. Plan of care was discussed with her. All of their questions have been answered. cc: Keyon Roberts MD
[2018-09-03] MEDS: ULTRAM PO PRN (15:43)
[2018-09-03] MEDS: NEURONTIN PO SCH (22:04)
[2018-09-03] MEDS: PRAVACHOL PO SCH (22:04)
[2018-09-04] MEDS: NS NEB INH SCH (03:15)
[2018-09-04] MEDS: XOPENEX NEB INH SCH ×3 (03:15→15:37)
[2018-09-04] MEDS: PROTONIX PO SCH (06:15)
[2018-09-04] MEDS: HEPARIN SUBQ SCH (08:54)
[2018-09-04] MEDS: MIRALAX PO SCH (08:54)
[2018-09-04] MEDS: CORDARONE PO SCH (08:55)
[2018-09-04] MEDS: PROAMATINE PO SCH ×2 (08:55→16:06)
[2018-09-04] MEDS: ZETIA PO SCH (08:55)
[2018-09-04] MEDS: SANTYL OINT TOP SCH (09:03)
[2018-09-04] MEDS: SPIRIVA INH SCH (09:59)
[2018-09-04 11:42] VITALS: BP 138/91
[2018-09-04] MEDS: ULTRAM PO PRN (11:51)
--- NOTE | 2018-09-04 13:15 | DISCHARGE SUMMARY ---
ADMISSION DATE: 08/28/2018 DISCHARGE DATE: 09/04/2018 DISCHARGE DISPOSITION: Home with family support. The patient uses home oxygen. DISCHARGE CONDITION: Stable. The patient is alert, oriented to place and person. However, appears pretty much bed bound, which is her new baseline in the past few months. DISCHARGE DIAGNOSES: 1. Acute encephalopathy, metabolic, due to missed hemodialysis session. 2. Missed hemodialysis from rehab place due to undocumented and unclear reason leading to hypervolemia 3. Hypotension due to poor p.o. intake, general debility, and hemodialysis, requiring midodrine dosing. 4. Hypokalemia. 5. Hypophosphatemia. OTHER DIAGNOSES: 1. History of end-stage renal disease on Wednesday, Wednesday, Wednesday hemodialysis. 2. History of chronic obstructive pulmonary disease, on home oxygen. 3. History of paroxysmal atrial fibrillation. 4. History of chronic pain. 5. History of hyperlipidemia. 6. History of left heel osteomyelitis. 7. Bilateral decubitus ulcer. 8. Hemorrhagic cerebrovascular accident. 9. Early dementia. 10. Severe aortic stenosis. DISCHARGE MEDICATIONS: Ezetimibe 10 mg daily, gabapentin 300 mg at nighttime, pantoprazole 40 mg daily, pravastatin 20 mg at nighttime, Tylenol 650 mg q.6 hours p.r.n. for mild pain, albuterol ipratropium nebulization 3 mL inhaled q.2 hours p.r.n., amiodarone 200 mg daily , Santyl ointment 1 g topical daily, midodrine 10 mg p.o. t.i.d., MiraLAX 17 g p.o. daily, tiotropium 1 puff inhaled daily, tramadol 25 mg p.o. q.6 hours p.r.n. for [id number] pain. PHYSICAL EXAMINATION: Vital signs: At the time of discharge, temperature of 97.5 degrees, pulse 83, blood pressure 101/41, saturating 100% on 2 L nasal cannula. General: Did not appear in any acute distress. Alert and oriented to herself, physician, and place. HEENT: Oral cavity was moist. Lungs: Air entry bilaterally equal. No wheeze, rhonchi, or crackles. Cardiovascular: S1, S2 normal. No rub or gallop. Systolic murmur affecting mitral aortic region. Abdomen: Soft, nontender. Extremities: Mild lower extremity edema. Neurologic: Alert and oriented x2. SIGNIFICANT LABS DURING HOSPITAL ADMISSION: She had anemia of chronic disease with hemoglobin of 8.2. She had hypokalemia and hypophosphatemia, which were taken care of during hemodialysis. CONSULTATION DURING HOSPITALIZATION: Nephrology, Dr. Nava. MICROBIOLOGY: No microbiological data during hospital admission. IMAGING DURING HOSPITALIZATION: Head CT on admission had extensive chronic ischemic changes without any evidence of acute disease. HOSPITAL COURSE SUMMARY: Ms. Beltran is a 77-year-old lady with a history of end-stage renal disease, who came in because of her confusion, drowsiness, and obtundation. Apparently, she had missed 2 hemodialysis sessions from rehab prior to presentation. According to history given by daughter, the reason why she missed hemodialysis was the patient herself had refused. However, daughter was not notified of this. When she came to the emergency room, her head CT was unremarkable. She underwent frequent hemodialysis during hospital admission, following which her acute encephalopathy had resolved. At the time of discharge she will be discharged on her routine Wednesday, Wednesday, Wednesday hemodialysis schedule. HOSPITAL COURSE BY PROBLEM: 1. Acute metabolic encephalopathy on presentation because of missed hemodialysis , resolved after frequent dialysis. 2. ESRD. She was discharged on her regular hemodialysis schedule. 3. Hypotension, thought to be related to general debility, poor p.o. intake, and dialysis. She was started on midodrine on a daily basis, following which her hypotension resolved. She was getting midodrine t.i.d. 4. History of COPD. She did not have an acute exacerbation. She maintained saturation more than 90% on 2 to 3 L nasal cannula, which is her home oxygen. 5. Paroxysmal atrial fibrillation. She was continued on amiodarone. 6. She was also continue tiotropium for her COPD. 7. For chronic pain, she was continued on gabapentin, decreased dose of tramadol , and p.r.n. acetaminophen. 8. She was continued on pravastatin for hyperlipidemia. 9. Disposition. I had brought up the idea of sending the patient to rehab to the patient's [id number] and son who are surrogate decision maker. However, the [id number]-[id number] wanted the patient to come home, so patient will be discharged home. TIME SPENT: More than 30 minutes were spent discharging this patient. All of [id number]'s questions were answered. I had suggested them to carry out a discussion with her regular doctor about long-term care facility placement. cc: Keyon Roberts MD [facility]
== END 2018-09-04 18:15 | disposition home or self-care (01) | DRG 70 ==
LOC: SUATTDRO 23:28 → EDIPHOLD 23:28 → 3N 08-29 00:12
PROVIDERS: ATTEND Internal Medicine
CPT/HCPCS: 70450; 80053; 80069; 82948; 83735; 84134; 85025; 94640; 94760; 94761; A9270; J1644; J7030; J7040; XXXXX